=== PATIENT | female | born 1980 | race Two or more races ===

== ENCOUNTER 2017-02-18 18:31 | Inpatient (IN) | payer SELFPAY ==
[~2017-02-18] VITALS: Ht 162.6 cm; Wt 72.6 kg
[2017-02-18 18:46] LABS: BILIRUBIN,URINE NEGATIVE (NEG); GLUCOSE,URINE NEGATIVE (NEG); NITRITE,URINE NEGATIVE (NEG); PH,URINE 5.5; PROTEIN,URINE NEGATIVE (NEG-TRACE); UROBILINOGEN,URINE 0.2 mg/dL (0.2 mg/dL)
[2017-02-18 18:55] LABS: BACTERIA,URINE 0 /HPF (0-FEW); RBC,URINE OCC /HPF (0-2); SQUAMOUS EPITHELIAL CELL,UR MOD /LPF
--- NOTE | 2017-02-18 18:57 | PHYS DOC ---
Past Medical History Past Medical History: No Pertinent History, Migraines Past Surgical History: No Surgical History Alcohol Use: None Drug Use: None Adult General Chief Complaint Chief Complaint: ABDOMINAL PAIN HPI HPI Patient is a 36 year old female sent to the ED from urgent care with a concern for right lower quadrant abdominal pain, rule out appendicitis. Patient states the pain started Thursday night, 02/15. At first she thought may be it was menstrual cramps but her menstrual period is not due until next week. It worsened yesterday morning and has been as bad as a 10 over the last 1-2 days. She has never had pain like this before. She's had no nausea, vomiting, or diarrhea. No vaginal discharge or bleeding. She has a 10 year Copper IUD that she's had for one year. Since she's had it, her periods have not been regular. Prior to that, she was on the control pill and her periods were regular. 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 She denies fever or chills. Review of Systems Review of Systems Constitutional: Denies fever or chills [] HENT: Denies nasal congestion or sore throat [] Respiratory: Denies cough or shortness of breath [] Cardiovascular: Denies chest pain GI: As in history of present illness : Denies dysuria or hematuria [] Integument: Denies rash or skin lesions [] Neurologic: Denies headache, focal weakness or sensory changes [] Current Medications Current Medications Current Medications Medications (Trade) Dose Ordered Sig/Sara Start Time Stop Time Status Last Admin Dose Admin Fentanyl Citrate (Fentanyl 2ml Vial) 50 mcg PRN Q15MIN PRN 02/18/17 19:00 02/19/17 18:59 02/18/17 19:01 50 MCG Iohexol (Omnipaque 300 Mg/ml) 75 ml 1X ONCE 02/18/17 19:00 02/18/17 19:01 DC 02/18/17 19:07 75 ML Allergies Allergies Allergies Coded Allergies Type Severity Reaction Last Updated Verified No Known Drug Allergies 05/23/14 No Physical Exam Physical Exam Constitutional: Well developed, well nourished, no acute distress, non-toxic appearance. Alert, mentating normally. When she walks, she does bend over and guarded her right lower quadrant. HENT: Normocephalic, atraumatic, bilateral external ears normal, nose normal. [ ] Eyes: conjunctiva normal, no discharge. [] Neck: Normal range of motion, no stridor. [] Cardiovascular:Heart rate regular rhythm, no murmur [] Lungs & Thorax: Bilateral breath sounds clear to auscultation [] Abdomen: Bowel sounds present and active, nondistended, no mass, no pulsatile mass. No right upper quadrant or left-sided abdominal tenderness. Tenderness to palpation in the right lower quadrant, slightly lower than McBurney's point. No guarding, negative Rovsing's. Skin: Warm, dry, no erythema, no rash. [] Extremities: No tenderness, no cyanosis, no clubbing, ROM intact, no edema. [] Neurologic: Alert and oriented X 3, normal motor function, normal sensory function, no focal deficits noted. [] Current Patient Data Vital Signs Vital Signs Date Time Temp Pulse Resp B/P (MAP) Pulse Ox O2 Delivery O2 Flow Rate FiO2 02/18/17 21:06 80 16 100/59 (73) 99 Room Air 02/18/17 18:37 98.2 98.2 Lab Values Laboratory Tests Test 02/18/17 17:45 02/18/17 18:40 02/18/17 18:45 02/18/17 18:54 POC Urine HCG, Qualitative Hcg negative (Negative) Urine Collection Type Unknown Urine Color Yellow Urine Clarity Clear Urine pH 5.5 Urine Specific [place] 1.020 Urine Protein Negative mg/dL (NEG-TRACE) Urine Glucose (UA) Negative mg/dL (NEG) Urine Ketones (Stick) Negative mg/dL (NEG) Urine Blood Negative (NEG) Urine Nitrite Negative (NEG) Urine Bilirubin Negative (NEG) Urine Urobilinogen Dipstick 0.2 mg/dL (0.2 mg/dL) Urine Leukocyte Esterase Small (NEG) Urine RBC Occ /HPF (0-2) Urine WBC 5-10 /HPF (0-4) Urine Squamous Epithelial Cells Mod /LPF Urine Bacteria 0 /HPF (0-FEW) Urine Mucus Mod /LPF White Blood Count 9.9 x10^3/uL (4.0-11.0) Red Blood Count 4.28 x10^6/uL (3.50-5.40) Hemoglobin 12.7 g/dL (12.0-15.5) Hematocrit 38.0 % (36.0-47.0) Mean Corpuscular Volume 89 fL (79-100) Mean Corpuscular Hemoglobin 30 pg (25-35) Mean Corpuscular Hemoglobin Concent 34 g/dL (31-37) Red Cell Distribution Width 13.7 % (11.5-14.5) Platelet Count 389 x10^3/uL (140-400) Neutrophils (%) (Auto) 66 % (31-73) Lymphocytes (%) (Auto) 26 % (24-48) Monocytes (%) (Auto) 6 % (0-9) Eosinophils (%) (Auto) 2 % (0-3) Basophils (%) (Auto) 1 % (0-3) Neutrophils # (Auto) 6.6 x10^3uL (1.8-7.7) Lymphocytes # (Auto) 2.6 x10^3/uL (1.0-4.8) Monocytes # (Auto) 0.5 x10^3/uL (0.0-1.1) Eosinophils # (Auto) 0.2 x10^3/uL (0.0-0.7) Basophils # (Auto) 0.0 x10^3/uL (0.0-0.2) Sodium Level 139 mmol/L (136-145) Potassium Level 3.8 mmol/L (3.5-5.1) Chloride Level 103 mmol/L (98-107) Carbon Dioxide Level 25 mmol/L (21-32) Anion Gap 11 (6-14) 19 mmol/L (6-14) H Blood Urea Nitrogen 12 mg/dL (7-20) Creatinine 0.6 mg/dL (0.6-1.0) Estimated GFR (Cockcroft-Gault) 112.5 BUN/Creatinine Ratio 20 (6-20) Glucose Level 122 mg/dL (70-99) H 122 mg/dL (70-99) H Calcium Level 8.5 mg/dL (8.5-10.1) Total Bilirubin 0.4 mg/dL (0.2-1.0) Aspartate Amino Transferase (AST) 24 U/L (15-37) Alanine Aminotransferase (ALT) 19 U/L (14-59) Alkaline Phosphatase 87 U/L (46-116) Total Protein 7.6 g/dL (6.4-8.2) Albumin 3.8 g/dL (3.4-5.0) Albumin/Globulin Ratio 1.0 (1.0-1.7) POC Hemoglobin 13.3 g/dL (12-15) POC Hematocrit 39 % (36-40) POC Sodium 139 mmol/L (135-145) POC Potassium 3.9 mmol/L (3.5-5.0) POC Chloride 104 mmol/L (98-110) POC Total CO2 21 mmol/L (23-32) L POC Blood Urea Nitrogen 13 mg/dL (8-26) POC Creatinine 0.5 mg/dL (0.5-1.4) POC Ionized Calcium (Yessi) 1.10 mmol/L (1.13-1.32) L Laboratory Tests 02/18/17 18:45 Laboratory Tests 02/18/17 18:45 02/18/17 18:54 EKG EKG [] Radiology/Procedures Radiology/Procedures FINDINGS There is no significant abnormality limited visualized lung bases. Both kidneys enhance without hydronephrosis. 1.2 centimeter hypodense lesion of the mid left kidney is most compatible with a cyst. Gallbladder is present without obvious intraluminal abnormality by CT. No significant focal abnormality is identified of the liver, spleen, pancreas. Accurate evaluation of bowel is limited without oral contrast. There is no free air. There is IUD present. There is a small focus of calcification in the right pelvis in smaller caliber, tortuous fluid filled structure which possibly could be in the appendix, this segment not considered significantly dilated at 0.5 centimeters if this does indeed represent the appendix. There is likely right adnexal cyst on the order of 2.1 centimeters.. There is mild free fluid in the dependent pelvis. There is likely left adnexal cyst up to 1.9 centimeters. IMPRESSION 1. There is small quantity of nonspecific fluid in the pelvis. There are suspected adnexal cysts bilaterally. Appendix cannot be confidently identified, questionably seen with some internal fluid and small internal possible calcification/appendicolith although not considered significantly dilated if this does indeed represent appendix. Correlation with laboratory and clinical findings is advised. 2. There is small left renal cyst. Electronically signed by: Leon Dozier MD (February 18, 2017 19:26:42) [] Course & Med Decision Making Course & Med Decision Making Pertinent Labs and Imaging studies reviewed. (See chart for details) 36-year-old female in good health presents to the ED with 4 days of worsening right lower quadrant abdominal pain. I discussed with her that we will check some labs and a CT scan of the abdomen and pelvis. I agree that she needs to have appendicitis ruled out. Her pain is just a little low and so if the CT scan is unrevealing she may then need to have an ultrasound to evaluate her right ovary. She is agreeable to that plan. We will give her some IV pain medication during her evaluation. CT scan is equivocal and does not clearly demonstrate appendicitis. I discussed the CT scan with . He doesn't believe any other views from this scan will be helpful. He said we could consider letting the patient drink oral contrast and rescan her. He did not think that a ultrasound would be helpful at this time. I discussed the case with Dr. Tucker, on-call for general surgery. We agreed that admission for observation and repeat exam would be our preference. I discussed this with the patient who is agreeable. Dr. Tucker will admit the patient. I wrote bridge orders. He asked me to keep her nothing by mouth after midnight and do not start antibiotics but give her IV hydration which I did do. [] Dragon Disclaimer Dragon Disclaimer This electronic medical record was generated, in whole or in part, using a voice recognition dictation system. Departure Departure Impression: Primary Impression: Abdominal pain, right lower quadrant Disposition: ADMITTED INPATIENT Admitting Physician: Other Condition: STABLE Referrals: NO PCP (PCP) KASEY MABRY MD February 18, 2017 18:57
[2017-02-18 18:58] LABS: POTASSIUM ISTAT 3.9 mmol/L (3.5-5.0)
[2017-02-18 19:00] LABS: BASO % 1 % (0-3); EOS % 2 % (0-3); HEMOGLOBIN 12.7 g/dL (12.0-15.5); LYMPH # 2.6 x10^3/uL (1.0-4.8); LYMPH % 26 % (24-48); MEAN CORPUSCULAR HEMOGLOBIN 30 pg (25-35); MEAN CORPUSCULAR HGB CONC 34 g/dL (31-37); MEAN CORPUSCULAR VOLUME 89 fL (79-100); MONO % 6 % (0-9); NEUT % 66 % (31-73); PLATELET COUNT 389 x10^3/uL (140-400); RED BLOOD COUNT 4.28 x10^6/uL (3.50-5.40); RED CELL DISTRIBUTION WIDTH 13.7 % (11.5-14.5); WHITE BLOOD COUNT 9.9 x10^3/uL (4.0-11.0)
[2017-02-18] MEDS ORDERED: IOHEXOL 300 MG/ML 75 ML VIAL IV ONE (19:00)
[2017-02-18] MEDS ORDERED: fentaNYL PF VIAL 100 MCG/2 ML VIAL IV PRN ×2 (19:00→21:15)
[2017-02-18 19:12] LABS: CALCIUM 8.5 mg/dL (8.5-10.1); CREATININE 0.6 mg/dL (0.6-1.0); GFR 112.5; POTASSIUM 3.8 mmol/L (3.5-5.1)
[2017-02-18 19:18] LABS: ALBUMIN 3.8 g/dL (3.4-5.0); TOTAL BILIRUBIN 0.4 mg/dL (0.2-1.0); TOTAL PROTEIN 7.6 g/dL (6.4-8.2)
--- NOTE | 2017-02-18 19:28 | RAD ---
PROCEDURE CT abdomen pelvis with contrast. HISTORY Severe right lower quadrant pain since yesterday TECHNIQUE After the administration of intravenous contrast, CT imaging was performed of the abdomen pelvis, multiplanar reconstruction images submitted. No oral contrast was given as per request. Exposure: One or more of the following individualized dose reduction techniques were utilized for this exam: 1. Automated exposure control. 2. Adjustment of the mA and/or kV according to patient size. 3. Use of iterative reconstruction technique. Contrast: 75 cc Omnipaque 300 COMPARISON None FINDINGS There is no significant abnormality limited visualized lung bases. Both kidneys enhance without hydronephrosis. 1.2 centimeter hypodense lesion of the mid left kidney is most compatible with a cyst. Gallbladder is present without obvious intraluminal abnormality by CT. No significant focal abnormality is identified of the liver, spleen, pancreas. Accurate evaluation of bowel is limited without oral contrast. There is no free air. There is IUD present. There is a small focus of calcification in the right pelvis in smaller caliber, tortuous fluid filled structure which possibly could be in the appendix, this segment not considered significantly dilated at 0.5 centimeters if this does indeed represent the appendix. There is likely right adnexal cyst on the order of 2.1 centimeters.. There is mild free fluid in the dependent pelvis. There is likely left adnexal cyst up to 1.9 centimeters. IMPRESSION 1. There is small quantity of nonspecific fluid in the pelvis. There are suspected adnexal cysts bilaterally. Appendix cannot be confidently identified, questionably seen with some internal fluid and small internal possible calcification/appendicolith although not considered significantly dilated if this does indeed represent appendix. Correlation with laboratory and clinical findings is advised. 2. There is small left renal cyst. Electronically signed by: Leon Dozier MD (February 18, 2017 19:26:42)
[2017-02-18] MEDS ORDERED: ONDANSETRON PF 4 MG/2 ML VIAL. IV PRN (21:15)
[2017-02-18] MEDS ORDERED: IV NORMAL SALINE 1000ML BAG 1,000 ML IV ONE (21:15)
[2017-02-18 21:40] VITALS: BP 123/75
[2017-02-18 23:00] VITALS: BP 93/54
[2017-02-19 03:00] VITALS: BP 91/57
[2017-02-19 07:00] VITALS: BP 94/48
--- NOTE | 2017-02-19 08:31 | PDOC1 ---
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 The pain is intermittent, although on Thursday it was more severe. She denies similar pain in past. No vaginal discharge, menstrual cycle to begin in next week or so. No constipation or diarrhea Past Medical History Past Medical History no significant hx Past Surgical History Past Surgical History: No pertinent history Family History Family History: Other (nonocontributory to current illness ) Social History Smoke: No ALCOHOL: none Drugs: None Current Problem List Problem List Problems Medical Problems: (1) Abdominal pain, right lower quadrant Status: Acute Problems: Current Medications Current Medications Current Medications Fentanyl Citrate (Fentanyl 2ml Vial) 50 mcg PRN Q15MIN PRN IV PAIN GREATER THAN 3/10 Last administered on 02/18/17 19:01; Start 02/18/17 at 19:00; Stop at 18:59 Iohexol (Omnipaque 300 Mg/ml) 75 ml 1X ONCE IV Last administered on 02/18/17 19:07; Start 02/18/17 at 19:00; Stop 02/18/17 at 19:01; Status DC Ondansetron HCl (Zofran) 4 mg PRN Q8HRS PRN IV NAUSEA/VOMITING; Start 02/18/17 at 21:15; Stop 02/19/17 at 21:14 Fentanyl Citrate (Fentanyl 2ml Vial) 50 mcg PRN Q2HR PRN IV PAIN Last administered on 02/19/17 05:52; Start 02/18/17 at 21:15; Stop 02/19/17 at 21:14 Sodium Chloride 1,000 ml @ 125 mls/hr 1X ONCE IV Last administered on 21:15; Start 02/18/17 at 21:15; Stop 02/19/17 at 05:14; Status DC Allergies Allergies: Coded Allergies: No Known Drug Allergies (Unverified , 05/23/14) ROS General: YES: Appetite (normal ), No: Chills, Other (fevers) PSYCHOLOGICAL ROS: No: Anxiety, Depression Eyes: No Blurry vision, No Double vision HEENT: No: Heacaches, Sore Throat Hematological and Lymphatic: No: Bleeding Problems, Blood Clots Respiratory: No: Cough, Shortness of breath Cardiovascular: No Chest Pain, No Palpitations Gastrointestinal: Yes Other (see hpi) Genitourinary: No Dysuria, No Hematuria Musculoskeletal: No Joint Pain, No Muscle Pain Neurological: No Impaired Coord/balance, No Numbness/Tingling Skin: No Pruritus, No Rash Physical Exam General: Alert, Oriented X3, Cooperative, No acute distress HEENT: PERRLA Lungs: Clear to auscultation, Normal air movement Cardiovascular: S1, S2 Abdomen: Soft, Other (ND, moderate RLQ TTP no guarding or rebound ) Extremities: No clubbing, No cyanosis Skin: No rashes, No breakdown Neuro: Normal speech, Sensation intact Psych/Mental Status: Mental status NL, Mood NL Vitals Vitals Vital Signs Date Time Temp Pulse Resp B/P (MAP) Pulse Ox O2 Delivery O2 Flow Rate FiO2 02/19/17 07:00 97.9 64 18 94/48 (63) 98 Room Air 97.9 Labs Labs Laboratory Tests Test 02/18/17 17:45 02/18/17 18:40 02/18/17 18:45 02/18/17 18:54 Bedside Urine HCG, Qualitative Hcg negative (Negative) Urine Collection Type Unknown Urine Color Yellow Urine Clarity Clear Urine pH 5.5 Urine Specific [place] 1.020 Urine Protein Negative mg/dL (NEG-TRACE) Urine Glucose (UA) Negative mg/dL (NEG) Urine Ketones (Stick) Negative mg/dL (NEG) Urine Blood Negative (NEG) Urine Nitrite Negative (NEG) Urine Bilirubin Negative (NEG) Urine Urobilinogen Dipstick 0.2 mg/dL (0.2 mg/dL) Urine Leukocyte Esterase Small (NEG) Urine RBC Occ /HPF (0-2) Urine WBC 5-10 /HPF (0-4) Urine Squamous Epithelial Cells Mod /LPF Urine Bacteria 0 /HPF (0-FEW) Urine Mucus Mod /LPF White Blood Count 9.9 x10^3/uL (4.0-11.0) Red Blood Count 4.28 x10^6/uL (3.50-5.40) Hemoglobin 12.7 g/dL (12.0-15.5) Hematocrit 38.0 % (36.0-47.0) Mean Corpuscular Volume 89 fL (79-100) Mean Corpuscular Hemoglobin 30 pg (25-35) Mean Corpuscular Hemoglobin Concent 34 g/dL (31-37) Red Cell Distribution Width 13.7 % (11.5-14.5) Platelet Count 389 x10^3/uL (140-400) Neutrophils (%) (Auto) 66 % (31-73) Lymphocytes (%) (Auto) 26 % (24-48) Monocytes (%) (Auto) 6 % (0-9) Eosinophils (%) (Auto) 2 % (0-3) Basophils (%) (Auto) 1 % (0-3) Neutrophils # (Auto) 6.6 x10^3uL (1.8-7.7) Lymphocytes # (Auto) 2.6 x10^3/uL (1.0-4.8) Monocytes # (Auto) 0.5 x10^3/uL (0.0-1.1) Eosinophils # (Auto) 0.2 x10^3/uL (0.0-0.7) Basophils # (Auto) 0.0 x10^3/uL (0.0-0.2) Sodium Level 139 mmol/L (136-145) Potassium Level 3.8 mmol/L (3.5-5.1) Chloride Level 103 mmol/L (98-107) Carbon Dioxide Level 25 mmol/L (21-32) Anion Gap 11 (6-14) 19 mmol/L (6-14) Blood Urea Nitrogen 12 mg/dL (7-20) Creatinine 0.6 mg/dL (0.6-1.0) Estimated GFR (Cockcroft-Gault) 112.5 BUN/Creatinine Ratio 20 (6-20) Glucose Level 122 mg/dL (70-99) 122 mg/dL (70-99) Calcium Level 8.5 mg/dL (8.5-10.1) Total Bilirubin 0.4 mg/dL (0.2-1.0) Aspartate Amino Transf (AST/SGOT) 24 U/L (15-37) Alanine Aminotransferase (ALT/SGPT) 19 U/L (14-59) Alkaline Phosphatase 87 U/L (46-116) Total Protein 7.6 g/dL (6.4-8.2) Albumin 3.8 g/dL (3.4-5.0) Albumin/Globulin Ratio 1.0 (1.0-1.7) Bedside Hemoglobin 13.3 g/dL (12-15) Bedside Hematocrit 39 % (36-40) Bedside Sodium 139 mmol/L (135-145) Bedside Potassium 3.9 mmol/L (3.5-5.0) Bedside Chloride 104 mmol/L (98-110) Bedside Total CO2 21 mmol/L (23-32) Bedside Blood Urea Nitrogen 13 mg/dL (8-26) Bedside Creatinine 0.5 mg/dL (0.5-1.4) Bedside Ionized Calcium (Yessi) 1.10 mmol/L (1.13-1.32) Laboratory Tests Test 02/18/17 17:45 02/18/17 18:40 02/18/17 18:45 02/18/17 18:54 Bedside Urine HCG, Qualitative Hcg negative (Negative) Urine Collection Type Unknown Urine Color Yellow Urine Clarity Clear Urine pH 5.5 Urine Specific [place] 1.020 Urine Protein Negative mg/dL (NEG-TRACE) Urine Glucose (UA) Negative mg/dL (NEG) Urine Ketones (Stick) Negative mg/dL (NEG) Urine Blood Negative (NEG) Urine Nitrite Negative (NEG) Urine Bilirubin Negative (NEG) Urine Urobilinogen Dipstick 0.2 mg/dL (0.2 mg/dL) Urine Leukocyte Esterase Small (NEG) Urine RBC Occ /HPF (0-2) Urine WBC 5-10 /HPF (0-4) Urine Squamous Epithelial Cells Mod /LPF Urine Bacteria 0 /HPF (0-FEW) Urine Mucus Mod /LPF White Blood Count 9.9 x10^3/uL (4.0-11.0) Red Blood Count 4.28 x10^6/uL (3.50-5.40) Hemoglobin 12.7 g/dL (12.0-15.5) Hematocrit 38.0 % (36.0-47.0) Mean Corpuscular Volume 89 fL (79-100) Mean Corpuscular Hemoglobin 30 pg (25-35) Mean Corpuscular Hemoglobin Concent 34 g/dL (31-37) Red Cell Distribution Width 13.7 % (11.5-14.5) Platelet Count 389 x10^3/uL (140-400) Neutrophils (%) (Auto) 66 % (31-73) Lymphocytes (%) (Auto) 26 % (24-48) Monocytes (%) (Auto) 6 % (0-9) Eosinophils (%) (Auto) 2 % (0-3) Basophils (%) (Auto) 1 % (0-3) Neutrophils # (Auto) 6.6 x10^3uL (1.8-7.7) Lymphocytes # (Auto) 2.6 x10^3/uL (1.0-4.8) Monocytes # (Auto) 0.5 x10^3/uL (0.0-1.1) Eosinophils # (Auto) 0.2 x10^3/uL (0.0-0.7) Basophils # (Auto) 0.0 x10^3/uL (0.0-0.2) Sodium Level 139 mmol/L (136-145) Potassium Level 3.8 mmol/L (3.5-5.1) Chloride Level 103 mmol/L (98-107) Carbon Dioxide Level 25 mmol/L (21-32) Anion Gap 11 (6-14) 19 mmol/L (6-14) Blood Urea Nitrogen 12 mg/dL (7-20) Creatinine 0.6 mg/dL (0.6-1.0) Estimated GFR (Cockcroft-Gault) 112.5 BUN/Creatinine Ratio 20 (6-20) Glucose Level 122 mg/dL (70-99) 122 mg/dL (70-99) Calcium Level 8.5 mg/dL (8.5-10.1) Total Bilirubin 0.4 mg/dL (0.2-1.0) Aspartate Amino Transf (AST/SGOT) 24 U/L (15-37) Alanine Aminotransferase (ALT/SGPT) 19 U/L (14-59) Alkaline Phosphatase 87 U/L (46-116) Total Protein 7.6 g/dL (6.4-8.2) Albumin 3.8 g/dL (3.4-5.0) Albumin/Globulin Ratio 1.0 (1.0-1.7) Bedside Hemoglobin 13.3 g/dL (12-15) Bedside Hematocrit 39 % (36-40) Bedside Sodium 139 mmol/L (135-145) Bedside Potassium 3.9 mmol/L (3.5-5.0) Bedside Chloride 104 mmol/L (98-110) Bedside Total CO2 21 mmol/L (23-32) Bedside Blood Urea Nitrogen 13 mg/dL (8-26) Bedside Creatinine 0.5 mg/dL (0.5-1.4) Bedside Ionized Calcium (Yessi) 1.10 mmol/L (1.13-1.32) Images Images CT reviewed VTE Prophylaxis Ordered VTE Prophylaxis Devices: No VTE Pharmacological Prophylaxi: No Assessment/Plan Assessment/Plan RLQ pain, symptoms for 4 days with normal WBC and nonspecific CT findings will have Dr Stroud review JUANPABLO STROUD MD 02/19/17 0855: History and Physical Allergies Allergies: Coded Allergies: No Known Drug Allergies (Unverified , 05/23/14) VTE Prophylaxis Ordered VTE Prophylaxis Devices: Yes VTE Pharmacological Prophylaxi: No Assessment/Plan Assessment/Plan pt seen, interviewed and examined will obtain a pelvic US to further assess possible ovarian origin for pain and fluid JONI VALENTIN APRN February 19, 2017 08:31 JUANPABLO STROUD MD February 19, 2017 08:55
--- NOTE | 2017-02-19 10:29 | RAD ---
Pelvic ultrasound, 02/19/2017: History: Right lower quadrant pain, pelvic fluid Transabdominal and transvaginal scans were obtained. The uterus measures 9 x 6 x 5 cm. An IUD is evident centrally in the uterus. There is mild thickening of the central uterine echo complex which measures approximately 17 mm in AP dimension. The uterus is otherwise unremarkable. There is a 2.5 cm simple cyst in the right ovary. There is a 2.1 cm hypoechoic structure in the left ovary which probably represents a complicated or hemorrhagic cyst. Blood flow is present in both ovaries. No free fluid is evident in the pelvis. IMPRESSION: 1. An IUD is in place in satisfactory position. 2. Mild nonspecific thickening of the central uterine echo complex. 3. Small right ovarian simple cyst. 4. Small left ovarian complicated cyst.
[2017-02-19 11:00] VITALS: BP 95/55
[2017-02-19 14:11] LABS: BASO % 1 % (0-3); EOS % 2 % (0-3); HEMATOCRIT 34.2 % (36.0-47.0); HEMOGLOBIN 11.5 g/dL (12.0-15.5); LYMPH # 1.9 x10^3/uL (1.0-4.8); LYMPH % 29 % (24-48); MEAN CORPUSCULAR HEMOGLOBIN 30 pg (25-35); MEAN CORPUSCULAR HGB CONC 34 g/dL (31-37); MEAN CORPUSCULAR VOLUME 88 fL (79-100); MONO % 7 % (0-9); NEUT % 61 % (31-73); PLATELET COUNT 319 x10^3/uL (140-400); RED BLOOD COUNT 3.86 x10^6/uL (3.50-5.40); RED CELL DISTRIBUTION WIDTH 13.7 % (11.5-14.5); WHITE BLOOD COUNT 6.5 x10^3/uL (4.0-11.0)
[2017-02-19 15:00] VITALS: BP 99/52
--- NOTE | 2017-02-19 17:52 | PDOC2 ---
CONSULT Date of Consult Date of Consult DATE: 02/19/17 TIME: 17:48 Reason for Consult Reason for Consult: ovarian cysts Referring Physician Referring Physician: Dr. Tucker Identification/Chief Complaint Chief Complaint RLQ pain Source Source: Chart review, Patient History of Present Illness Reason for Visit: 36 y/o presented to ED with c/o RLQ pain that continued to worsen. CT scan and U/S demonstrated ROV cyst 2.5 cm and JIMBO complex cyst of 2.1 cm. SHe has IUD in place. LMP was 2 wks ago. Pain is now controlled. Counseled on ovarian cysts and management plan. Past Surgical History Past Surgical History: No pertinent history Family History Family History: Other (nonocontributory to current illness ) Social History No ALCOHOL: none Drugs: None Current Problem List Problem List Problems Medical Problems: (1) Abdominal pain, right lower quadrant Status: Acute Current Medications Current Medications Current Medications Fentanyl Citrate (Fentanyl 2ml Vial) 50 mcg PRN Q15MIN PRN IV PAIN GREATER THAN 3/10 Last administered on 02/18/17 19:01; Start 02/18/17 at 19:00; Stop at 18:59 Iohexol (Omnipaque 300 Mg/ml) 75 ml 1X ONCE IV Last administered on 02/18/17 19:07; Start 02/18/17 at 19:00; Stop 02/18/17 at 19:01; Status DC Ondansetron HCl (Zofran) 4 mg PRN Q8HRS PRN IV NAUSEA/VOMITING; Start 02/18/17 at 21:15; Stop 02/19/17 at 21:14 Fentanyl Citrate (Fentanyl 2ml Vial) 50 mcg PRN Q2HR PRN IV PAIN Last administered on 02/19/17 05:52; Start 02/18/17 at 21:15; Stop 02/19/17 at 21:14 Sodium Chloride 1,000 ml @ 125 mls/hr 1X ONCE IV Last administered on 21:15; Start 02/18/17 at 21:15; Stop 02/19/17 at 05:14; Status DC Active Scripts Active No Active Prescriptions or Reported Medications Allergies Allergies: Coded Allergies: No Known Drug Allergies (Unverified , 05/23/14) ROS General: No: Chills, Night Sweats, Fatigue, Malaise, Appetite, Other PSYCHOLOGICAL ROS: No: Anxiety, Behavioral Disorder, Concentration difficultie , Decreased libido, Depression, Disorientation, Hallucinations, Hostility, Irritablity, Memory difficulties, Mood Swings, Obsessive thoughts, Physical abuse, Sexual abuse, Sleep disturbances, Suicidal ideation, Other Eyes: No Blurry vision, No Decreased vision, No Double vision, No Dry eyes, No Excessive tearing, No Eye Pain, No Itchy Eyes, No Loss of vision, No Photophobia , No Scotomata, No Uses contacts, No Uses glasses, No Other HEENT: No: Heacaches, Visual Changes, Hearing change, Nasal congestion, Nasal discharge, Oral lesions, Sinus pain, Sore Throat, Epistaxis, Sneezing, Snoring, Tinnitus, Vertigo, Vocal changes, Other ALLERGY AND IMMUNOLOGY: No: Hives, Insect Bite Sensitivity, Itchy/Watery Eyes, Nasal Congestion, Post Nasal Drip, Seasonal Allergies, Other Hematological and Lymphatic: No: Bleeding Problems, Blood Clots, Blood Transfusions, Brusing, Night Sweats, Pallor, Swollen Lymph Nodes, Other ENDOCRINE: No: Breast Changes, Galactorrhea, Hair Pattern Changes, Hot Flashes , Malaise/lethargy, Mood Swings, Palpitations, Polydipsia/polyuria, Skin Changes , Temperature Intolerance, Unexpected Weight Changes, Other Breast: No New/Changing Breast Lumps, No Nipple changes, No Nipple discharge, No Other Respiratory: No: Cough, Hemoptysis, Orthopnea, Pleuritic Pain, Shortness of breath, SOB with excertion, Sputum Changes, Stridor, Tachypnea, Wheezing, Other Cardiovascular: No Chest Pain, No Palpitations, No Orthopnea, No Paroxysmal Noc. Dyspnea, No Edema, No Lt Headedness, No Other Gastrointestinal: Yes Abdominal Pain, No Nausea, No Vomiting, No Diarrhea, No Constipation, No Melena, No Hematochezia, No Other Genitourinary: No Dysuria, No Frequency, No Incontinence, No Hematuria, No Retention, No Discharge, No Urgency, No Pain, No Flank Pain, No Other, No , No , No , No , No , No , No Musculoskeletal: No Gait Disturbance, No Joint Pain, No Joint Stiffness, No Joint Swelling, No Muscle Pain, No Muscular Weakness, No Pain In:, No Swelling In:, No Other Neurological: No Behavorial Changes, No Bowel/Bladder ControlChng, No Confusion , No Dizziness, No Gait Disturbance, No Headaches, No Impaired Coord/balance, No Memory Loss, No Numbness/Tingling, No Seizures, No Speech Problems, No Tremors, No Visual Changes, No Weakness, No Other Skin: No Dry Skin, No Eczema, No Hair Changes, No Lumps, No Mole Changes, No Mottling, No Nail Changes, No Pruritus, No Rash, No Skin Lesion Changes, No Other, No Acne Vitals VITALS Vital Signs Date Time Temp Pulse Resp B/P (MAP) Pulse Ox O2 Delivery O2 Flow Rate FiO2 02/19/17 15:00 98.8 68 16 99/52 (68) 99 Room Air 98.8 Labs Labs Laboratory Tests Test 02/18/17 17:45 02/18/17 18:40 02/18/17 18:45 02/18/17 18:54 Bedside Urine HCG, Qualitative Hcg negative (Negative) Urine Collection Type Unknown Urine Color Yellow Urine Clarity Clear Urine pH 5.5 Urine Specific Rhodes 1.020 Urine Protein Negative mg/dL (NEG-TRACE) Urine Glucose (UA) Negative mg/dL (NEG) Urine Ketones (Stick) Negative mg/dL (NEG) Urine Blood Negative (NEG) Urine Nitrite Negative (NEG) Urine Bilirubin Negative (NEG) Urine Urobilinogen Dipstick 0.2 mg/dL (0.2 mg/dL) Urine Leukocyte Esterase Small (NEG) Urine RBC Occ /HPF (0-2) Urine WBC 5-10 /HPF (0-4) Urine Squamous Epithelial Cells Mod /LPF Urine Bacteria 0 /HPF (0-FEW) Urine Mucus Mod /LPF White Blood Count 9.9 x10^3/uL (4.0-11.0) Red Blood Count 4.28 x10^6/uL (3.50-5.40) Hemoglobin 12.7 g/dL (12.0-15.5) Hematocrit 38.0 % (36.0-47.0) Mean Corpuscular Volume 89 fL (79-100) Mean Corpuscular Hemoglobin 30 pg (25-35) Mean Corpuscular Hemoglobin Concent 34 g/dL (31-37) Red Cell Distribution Width 13.7 % (11.5-14.5) Platelet Count 389 x10^3/uL (140-400) Neutrophils (%) (Auto) 66 % (31-73) Lymphocytes (%) (Auto) 26 % (24-48) Monocytes (%) (Auto) 6 % (0-9) Eosinophils (%) (Auto) 2 % (0-3) Basophils (%) (Auto) 1 % (0-3) Neutrophils # (Auto) 6.6 x10^3uL (1.8-7.7) Lymphocytes # (Auto) 2.6 x10^3/uL (1.0-4.8) Monocytes # (Auto) 0.5 x10^3/uL (0.0-1.1) Eosinophils # (Auto) 0.2 x10^3/uL (0.0-0.7) Basophils # (Auto) 0.0 x10^3/uL (0.0-0.2) Sodium Level 139 mmol/L (136-145) Potassium Level 3.8 mmol/L (3.5-5.1) Chloride Level 103 mmol/L (98-107) Carbon Dioxide Level 25 mmol/L (21-32) Anion Gap 11 (6-14) 19 mmol/L (6-14) Blood Urea Nitrogen 12 mg/dL (7-20) Creatinine 0.6 mg/dL (0.6-1.0) Estimated GFR (Cockcroft-Gault) 112.5 BUN/Creatinine Ratio 20 (6-20) Glucose Level 122 mg/dL (70-99) 122 mg/dL (70-99) Calcium Level 8.5 mg/dL (8.5-10.1) Total Bilirubin 0.4 mg/dL (0.2-1.0) Aspartate Amino Transf (AST/SGOT) 24 U/L (15-37) Alanine Aminotransferase (ALT/SGPT) 19 U/L (14-59) Alkaline Phosphatase 87 U/L (46-116) Total Protein 7.6 g/dL (6.4-8.2) Albumin 3.8 g/dL (3.4-5.0) Albumin/Globulin Ratio 1.0 (1.0-1.7) Bedside Hemoglobin 13.3 g/dL (12-15) Bedside Hematocrit 39 % (36-40) Bedside Sodium 139 mmol/L (135-145) Bedside Potassium 3.9 mmol/L (3.5-5.0) Bedside Chloride 104 mmol/L (98-110) Bedside Total CO2 21 mmol/L (23-32) Bedside Blood Urea Nitrogen 13 mg/dL (8-26) Bedside Creatinine 0.5 mg/dL (0.5-1.4) Bedside Ionized Calcium (Yessi) 1.10 mmol/L (1.13-1.32) Test 02/19/17 14:05 White Blood Count 6.5 x10^3/uL (4.0-11.0) Red Blood Count 3.86 x10^6/uL (3.50-5.40) Hemoglobin 11.5 g/dL (12.0-15.5) Hematocrit 34.2 % (36.0-47.0) Mean Corpuscular Volume 88 fL (79-100) Mean Corpuscular Hemoglobin 30 pg (25-35) Mean Corpuscular Hemoglobin Concent 34 g/dL (31-37) Red Cell Distribution Width 13.7 % (11.5-14.5) Platelet Count 319 x10^3/uL (140-400) Neutrophils (%) (Auto) 61 % (31-73) Lymphocytes (%) (Auto) 29 % (24-48) Monocytes (%) (Auto) 7 % (0-9) Eosinophils (%) (Auto) 2 % (0-3) Basophils (%) (Auto) 1 % (0-3) Neutrophils # (Auto) 4.0 x10^3uL (1.8-7.7) Lymphocytes # (Auto) 1.9 x10^3/uL (1.0-4.8) Monocytes # (Auto) 0.5 x10^3/uL (0.0-1.1) Eosinophils # (Auto) 0.1 x10^3/uL (0.0-0.7) Basophils # (Auto) 0.0 x10^3/uL (0.0-0.2) Laboratory Tests Test 02/18/17 18:40 02/18/17 18:45 02/18/17 18:54 02/19/17 14:05 Urine Collection Type Unknown Urine Color Yellow Urine Clarity Clear Urine pH 5.5 Urine Specific Rhodes 1.020 Urine Protein Negative mg/dL (NEG-TRACE) Urine Glucose (UA) Negative mg/dL (NEG) Urine Ketones (Stick) Negative mg/dL (NEG) Urine Blood Negative (NEG) Urine Nitrite Negative (NEG) Urine Bilirubin Negative (NEG) Urine Urobilinogen Dipstick 0.2 mg/dL (0.2 mg/dL) Urine Leukocyte Esterase Small (NEG) Urine RBC Occ /HPF (0-2) Urine WBC 5-10 /HPF (0-4) Urine Squamous Epithelial Cells Mod /LPF Urine Bacteria 0 /HPF (0-FEW) Urine Mucus Mod /LPF White Blood Count 9.9 x10^3/uL (4.0-11.0) 6.5 x10^3/uL (4.0-11.0) Red Blood Count 4.28 x10^6/uL (3.50-5.40) 3.86 x10^6/uL (3.50-5.40) Hemoglobin 12.7 g/dL (12.0-15.5) 11.5 g/dL (12.0-15.5) Hematocrit 38.0 % (36.0-47.0) 34.2 % (36.0-47.0) Mean Corpuscular Volume 89 fL (79-100) 88 fL (79-100) Mean Corpuscular Hemoglobin 30 pg (25-35) 30 pg (25-35) Mean Corpuscular Hemoglobin Concent 34 g/dL (31-37) 34 g/dL (31-37) Red Cell Distribution Width 13.7 % (11.5-14.5) 13.7 % (11.5-14.5) Platelet Count 389 x10^3/uL (140-400) 319 x10^3/uL (140-400) Neutrophils (%) (Auto) 66 % (31-73) 61 % (31-73) Lymphocytes (%) (Auto) 26 % (24-48) 29 % (24-48) Monocytes (%) (Auto) 6 % (0-9) 7 % (0-9) Eosinophils (%) (Auto) 2 % (0-3) 2 % (0-3) Basophils (%) (Auto) 1 % (0-3) 1 % (0-3) Neutrophils # (Auto) 6.6 x10^3uL (1.8-7.7) 4.0 x10^3uL (1.8-7.7) Lymphocytes # (Auto) 2.6 x10^3/uL (1.0-4.8) 1.9 x10^3/uL (1.0-4.8) Monocytes # (Auto) 0.5 x10^3/uL (0.0-1.1) 0.5 x10^3/uL (0.0-1.1) Eosinophils # (Auto) 0.2 x10^3/uL (0.0-0.7) 0.1 x10^3/uL (0.0-0.7) Basophils # (Auto) 0.0 x10^3/uL (0.0-0.2) 0.0 x10^3/uL (0.0-0.2) Sodium Level 139 mmol/L (136-145) Potassium Level 3.8 mmol/L (3.5-5.1) Chloride Level 103 mmol/L (98-107) Carbon Dioxide Level 25 mmol/L (21-32) Anion Gap 11 (6-14) 19 mmol/L (6-14) Blood Urea Nitrogen 12 mg/dL (7-20) Creatinine 0.6 mg/dL (0.6-1.0) Estimated GFR (Cockcroft-Gault) 112.5 BUN/Creatinine Ratio 20 (6-20) Glucose Level 122 mg/dL (70-99) 122 mg/dL (70-99) Calcium Level 8.5 mg/dL (8.5-10.1) Total Bilirubin 0.4 mg/dL (0.2-1.0) Aspartate Amino Transf (AST/SGOT) 24 U/L (15-37) Alanine Aminotransferase (ALT/SGPT) 19 U/L (14-59) Alkaline Phosphatase 87 U/L (46-116) Total Protein 7.6 g/dL (6.4-8.2) Albumin 3.8 g/dL (3.4-5.0) Albumin/Globulin Ratio 1.0 (1.0-1.7) Bedside Hemoglobin 13.3 g/dL (12-15) Bedside Hematocrit 39 % (36-40) Bedside Sodium 139 mmol/L (135-145) Bedside Potassium 3.9 mmol/L (3.5-5.0) Bedside Chloride 104 mmol/L (98-110) Bedside Total CO2 21 mmol/L (23-32) Bedside Blood Urea Nitrogen 13 mg/dL (8-26) Bedside Creatinine 0.5 mg/dL (0.5-1.4) Bedside Ionized Calcium (Yessi) 1.10 mmol/L (1.13-1.32) Assessment/Plan Assessment/Plan A: Fran. Ovarian cysts P: Pain management and repeat pelvic sono in 6 weeks. F/u in clinic in 4 weeks. Thank you for consult. KULDEEP DUMONT Jr, MD February 19, 2017 17:52
== END 2017-02-19 19:16 | disposition home or self-care (01) | DRG 761 ==
LOC: ER 18:31 → 4 NORTH 21:08
PROVIDERS: ADMIT Surgery; ATTEND Surgery
DX: N83.201 Unspecified ovarian cyst, right side (principal); N83.202 Unspecified ovarian cyst, left side; N28.1 Cyst of kidney, acquired; Z97.5 Presence of (intrauterine) contraceptive device
CPT/HCPCS: 36415; 74177; 76830; 76856; 80047; 80053; 81001; 81025; 85027; 87086; 96360; J3010; J7030; Q9967; 99285-25